=== PATIENT | male | born 1955 | race Caucasian/White ===

== ENCOUNTER 2022-02-23 09:30 | Emergency (ER) | payer MEDICAID, MEDICARE, OTHER ==
[~2022-02-23] VITALS: Ht 170.2 cm; Wt 75.0 kg
[2022-02-23] MEDS ORDERED: MORPHINE SULFATE 4 MG/ML CPJ (NOT FOR IM USE) IV STA (09:47)
[2022-02-23] MEDS ORDERED: SODIUM CHLORIDE 0.9% 1,000 ML IV ONE (10:00)
[2022-02-23 10:26] LABS: BASOPHILS % 0.9 % (0.0-2.0); EOSINOPHILS % 3.2 % (0.0-5.0); HEMATOCRIT. 41.4 % (42.0-52.0); LYMPHOCYTES % 34.3 % (20.0-50.0); MEAN CORPUSCULAR HEMOGLOBIN 29.4 pg (28.0-32.0); MEAN CORPUSCULAR VOLUME 87.1 fL (80.0-94.0); MONOCYTES % 6.9 % (2.0-8.0); NEUTROPHILS % 54.7 % (40.0-76.0); PLATELET 211 x1000/uL (130-400); RED BLOOD CELL COUNT 4.75 mill/uL (4.7-6.1); RED CELL DISTRIBUTION WIDTH 14.2 % (11.6-14.6)
[2022-02-23 10:34] LABS: CHLORIDE 105 mEq/L (98-107)
[2022-02-23 10:37] LABS: CLARITY URINE CLEAR (CLEAR); COLOR URINE YELLOW (YELLOW); KETONES URINE NEGATIVE (NEGATIVE); LEUKOCYTE ESTERASE URINE NEGATIVE (NEGATIVE); NITRITE URINE NEGATIVE (NEGATIVE); OCCULT BLOOD URINE NEGATIVE (NEGATIVE); PH URINE 5.5 (4.5-8.0); PROTEIN URINE NEGATIVE (NEGATIVE); SPECIFIC GRAVITY URINE 1.019 (1.005-1.030); UROBILINOGEN URINE 0.2 E.U./dL (0.2-1.0)
[2022-02-23] MEDS ORDERED: ACET-2708 MT (11:26)
[2022-02-23] MEDS ORDERED: LIDO700A15 TP (11:26)
[2022-02-23] MEDS ORDERED: BACL-141 MT (11:26)
[2022-02-23] MEDS ORDERED: KETOROLAC 15MG/ML VIAL IV ONE (11:30)
[2022-02-23 11:47] VITALS: BP 132/65
== END 2022-02-23 11:56 | disposition home or self-care (01) ==
LOC: ER 09:30
DX: R10.11 Right upper quadrant pain (principal); Z13.9 Encounter for screening, unspecified
CPT/HCPCS: 36415; 74176; 80053; 81003; 83690; 85025; 96361; 96374; 99284; J1885; J7030